=== PATIENT | female | born 1945 | race Caucasian/White ===

== ENCOUNTER 2023-07-27 19:56 | Inpatient (IN) | payer MEDICARE, OTHER, SELFPAY ==
[2023-07-27] VITALS (10 sets, daily range): BP systolic 123–161; BP diastolic 79–99; BMI 29.5
--- NOTE | 2023-07-27 16:11 | ED.MUSCINJ ---
HPI-Injury
General
Chief Complaint: Musculo-Skeletal Complaint
Source: patient
Exam Limitations: none
Time Seen by Provider: 07/27/23 15:57
Nursing documentation reviewed up to this point in time: agreed with
Travel History
Have you had any contact with someone who has COVID-19?: No
Do you have any symptoms of coronavirus? Fever > 100 degrees, chills, cough, shortness of breath, sore throat, loss of taste or smell, muscle aches, or headache?: No
History of Present Illness-Injury
Is this injury a work related problem?: No
Is pt an associate of [facility]?: No
Initial Injury comments:
Patient states she tripped over sidewalk and fell. Hit mouth on pavement. No LOC. States she was helped up by bystanders and was able to ambualate. Knee began to swell and now she can not put weight on leg. Brought to ED via EMS.
Past History
Past History
ED Past Medical History: Hypercholesterolemia and Hypothyroidism
Social History
Living: with family
Review of Systems
Review of Systems
Allergies reviewed?: Yes
All Other Systems: ROS reviewed and negative except as documented in HPI and ROS
Constitutional: Reports no symptoms
Musculoskeletal: Reports joint pain (pain and swelling to right ant. knee.)
Skin: Reports no symptoms
Neurological: Reports no symptoms
Psychiatric: Reports no symptoms
Musculoskeletal Injury Exam
Musculoskeletal Injury Exam
Right Knee:
Pain with Movement?: Moderate
Tender to palpation?: Moderate
Soft tissue swelling?: Moderate
External deformity and angulation?: None
Joint effusion?: Moderate
Contusion?: Moderate
Hematoma-local bleeding into tissue?: Moderate
Crepitus with movement?: No
Joint instability?: No
Malalignment/deformity?: No
Range of motion: Limited
Distal skin color and temperature: normal-warm & good color
Capillary Refill: normal
Normal distal neurovascular exam?: Yes
Peripheral Pulses: posterior tibial (right): 3+ and dorsalis pedis (right): 3+
Phy Exam
General Physical Exam
General Presentation: well appearing and moderate distress
General age: appears stated age
General Skin: warm and dry
General Habitus: normal
General Mental: alert
Musculoskeletal Exam
Musculoskeletal Exam: neuro vasc intact
Skin Exam
Skin Exam: normal color, warm/dry and no rash
Psychiatric Exam
Psychiatric Exam: normal mood/affect
Injury Course
Orders/Labs/Results
Orders:
Orders
07/27/23 Breakfast
Regular
07/27/23 16:11
CR Knee- Right 4 Or More View* Urgent
Comment:
Reason For Exam: fall, pain
07/27/23 17:45
Knee Immobilizer Right-Treatme ONCE
Oxycodone/Acetaminophen [Percocet 5/325] 1 tablet PO NOW STA
07/27/23 18:32
Complete Blood Count/With Diff Urgent
Comprehensive Metabolic Panel Urgent
07/27/23 18:33
ORTHOPEDIC CONSULT Urgent
Consulting Provider: Ramsey Toscano
Was physician already notified: Yes
07/27/23 19:35
Admit/Transfer Patient As Directed
Co-Sign Provider:
Level of Care: Inpatient admission
Assign to:: Medical/Surgical
Physician / Group: margie aguilar
Diagnosis: patella fracture
Reason for Hospitalization: patella fracture
Expected length of stay greater than two midnights?: Yes
ELOS- Estimated Length of Stay in days: 3
I certify the patient meets the requirements for IP care: Yes
07/27/23 19:36
Code Status As Directed
Resuscitation Status: Full Code
*Radiology
Radiology exam reviewed: radiology read reviewed
*Pulse Oximetry
Patient hypoxic: no
*Critical Care Note
Total Time (30-74mins, 75-104mins- exclusive of procedures): Not Applicable
ED Attending Note
-
Portions of this chart may have been created with voice recognition software.� Occasional wrong word or��sound alike� substitutions may have occurred due to the inherent limitations of voice recognition software.
Discharge Plan
Departure
Patient Disposition: Admit
Date of Disposition: 07/27/23
Time of Disposition: 18:25
Presentation/result/management discussed w/ accepting MD/DO: Hospitalist
Patient with high blood pressure during this ER visit?: No
Condition: Fair
Covid-19: Not Applicable
Discharge Problem:
Fracture, patella, Ambulatory dysfunction
Interventions
Interventions:
*Risk Screen - Suicide Last Done: 07/27/23 15:58
*General Assessment Last Done: 07/27/23 15:58
*Neglect/Abuse Screening Last Done: 07/27/23 15:58
ED- Fall Risk Assessment Last Done: 07/27/23 16:09
*ED COVID-19 Vaccine History Last Done: 07/27/23 15:58
ED-Musculoskeletal Assessment Last Done: 07/27/23 15:58
[2023-07-27] MEDS: PERCOCET 5/325 1 TABLET PO (17:52)
--- NOTE | 2023-07-27 19:19 | HPS.HSE ---
Family Physician
-
Family Physician: Cahno Arredondo
Chief Complaint
-
fall/right knee fracture
History of Present Illness
77-year-old with past medical history for hyperlipidemia, hypothyroidism presented to us after a fall. She tripped over a raised pavement and she fell on her knees and on her hands. She was able to get up with assistance and hoped over to a
stone. but in few hours, she noted swollen knees, worsening pain and was not able to walk. Patient denies any headache, dizziness, syncopal episode. Patient denied fever, chills, chest pain, short of breath. Denies any abdominal pain, nausea,
vomiting, diarrhea. Patient denies dysuria hematuria.
Knee x-ray with patellar fracture. immobilizer in place. admitting for further management.
Medical History
Past Medical History
Past Medical History: Reports Other
Additional Past Medical History:
Colonic polyps
obstructive sleep apnea
Hyperlipidemia
hypothyroidism
Generalized anxiety disorder
Osteopenia
Past Surgical History: Reports Other
Additional Past Surgical History:
Tonsillectomy
Right cataract removal
l right foot torn anterior tendon repair
Social History
Tobacco: Former Smoker
Alcohol: None
Drug: None
Personal:
Living: With Family
Family History
Family History: Not pertinent
Allergies / Home Medications
Allergies reflects when Allergies were last updated in [employer].
Home Medications with original date entered in [employer]
Allergy/Medication List:
Allergies
Allergy/AdvReac Type Severity Reaction Status Date / Time
certain fibers Allergy Unknown Uncoded 02/17/10 15:13
lactose intolerence Allergy Unknown Uncoded 02/17/10 15:13
Home Medications
citalopram 10 mg tablet 10 mg PO DAILY 07/27/23
coenzyme Q10 100 mg capsule (Co Q-10) 100 mg PO DAILY 07/27/23
levothyroxine 125 mcg tablet (Synthroid) 125 mcg PO MOTUWETHFRSA 07/27/23
rosuvastatin 5 mg tablet 2.5 mg PO HS 07/27/23
Review of Systems
-
Constitutional: Reports No Symptoms
EENT: Reports No Symptoms
Respiratory: Reports No Symptoms
Cardiac: Reports No Symptoms
Abdomen/GI: Reports No Symptoms
: Reports No Symptoms
Musculoskeletal: Reports Other (Right knee pain)
Skin: Reports No Symptoms
Neurological: Reports No Symptoms
Endocrine: Reports No Symptoms
Hematologic/Lymphatic: Reports No Symptoms
Psych: Reports No Symptoms
Physical Exam
Vital Signs
Vital Signs
Temp Pulse Resp BP Pulse Ox
98.2 F 86 12 134/89 96
07/27/23 15:58 07/27/23 15:58 07/27/23 15:58 07/27/23 16:01 07/27/23 16:45
Physical Exam
General: Well Developed, Well Nourished and No Apparent Distress
HEENT: NormoCephalic, Moist mucous membranes and Atraumatic
Respiratory: Clear
Cardiac: S1/S2 and Regular Rhythm; No Murmur or Rub
GI: Soft, Non Tender, Non Distended and Normal Bowel Sounds; No Organomegaly
Rectal: Deferred by Provider
Musculoskeletal: No Clubbing, No Cyanosis and Other (Right knee swelling)
Skin: No Rash
Neuro: AO x 3 and Nonfocal/grossly intact
Psych: Calm
Data Reviewed
-
Diagnostic Radiology: Report Reviewed by me
Lab Data: Labs Reviewed by me
Impression/Plan
-
# Patella fracture/ambulatory dysfunction
-Knee immobilizer in place
-Orthopedics consulted
-PT/OT consulted
-Knee x-ray with impression of Slightly distracted transverse fracture through the inferior pole of the patella. Large suprapatellar joint effusion with lipohemarthrosis. Mild prepatellar soft tissue edema.No dislocation. Mild tricompartmental
osteoarthritis.
-Will keep patient n.p.o. after midnight
# Anxiety
-Citalopram continued
# Hypothyroidism
-Levothyroxine continued
# Hyperlipidemia
-Statin continued
# DVT prophylaxis
-SCD
# CODE STATUS
-Full code
--- NOTE | 2023-07-27 19:48 | W.PN.UPDATE ---
Update Note
Progress Note Update
HPI: 77-year-old with past medical history of hyperlipidemia, hypothyroidism; presented with a fall. She tripped over a raised pavement and she fell on her knees and on her hands. She was able to get up with assistance. She noted swollen knees,
worsening pain and was not able to walk.
Patient denies to headache, dizziness, syncopal episode. Patient denies to fever, chills, chest pain, shortness of breath, abdominal pain, nausea, vomiting, diarrhea, dysuria etc.
Knee x-ray noted patellar fracture.
Immobilizer placed in ED. Admit for further management.
A/P
# Patella fracture from mechanical fall with ambulatory dysfunction
Knee x-ray with slightly distracted transverse fracture through the inferior pole of the patella. Large suprapatellar joint effusion with lipohemarthrosis. Mild prepatellar soft tissue edema.No dislocation. Mild tricompartmental osteoarthritis.
Cont Knee immobilizer
Orthopedics consulted
PT/OT eval
# Anxiety
Citalopram continued
# Hypothyroidism
Levothyroxine continued
# Hyperlipidemia
Statin continued
DVT prophylaxis-SCD
CODE STATUS-Full code
[2023-07-27] MEDS: DILAUDID 0.5 MG IV (22:45)
[2023-07-27] MEDS: TYLENOL 650 MG PO (23:52)
[2023-07-27] MEDS: CRESTOR 2.5 MG PO (23:55)
[2023-07-28] MEDS: COLACE PO (00:12)
[2023-07-28] MEDS: SENOKOT PO (00:12)
[2023-07-28 00:59] VITALS: BP 134/88
[2023-07-28] MEDS: TYLENOL 650 MG PO ×3 (05:07→12:17)
[2023-07-28] MEDS: DILAUDID 0.5 MG IV (05:10)
[2023-07-28 07:00] VITALS: BP 152/80
[2023-07-28] MEDS: SYNTHROID 125 MCG PO (07:50)
[2023-07-28] MEDS: SENOKOT 17.1999999999999993 MG PO (07:51)
[2023-07-28] MEDS: COLACE 100 MG PO (07:51)
[2023-07-28 07:52] VITALS: BP 144/97
--- NOTE | 2023-07-28 08:13 | CON.ORTHO ---
Consultation
-
Date/Time Consultation Requested: 07/27/2023; time unknown
Date/Time Consultation Performed: 07/28/2023; 0745
Requesting Provider: unknown
Performing Provider: Dr. Ramsey Toscano / Bridgette Griffith PA-C
Reason for Consultation: Right patella fracture
Consultation - Orthopedics
History
Patient seen in tandem with Dr. Toscano.
Ms. Fonseca is a 77 yo F with PMH of hyperlipidemia and hypothyroidism seen today for evaluation of her right knee. She reports she was walking around in the city yesterday morning when she tripped on a paving stone and landed on her right knee. She
experienced immediate onset of pain in the knee, but was able to drive herself home. She reports her pain and swelling became progressively worse with time to the point where she was not able to bear weight on it. This prompted her to present to
[facility] ED where x-rays revealed a nondisplaced transverse fracture of her right patella. She does report aching pain in the knee, but states her symptoms have improved overnight. She had significant difficulty ambulating in her knee
immobilizer yesterday which prompted her to be kept overnight for observation. She denies treatment for this knee in the past. She denies pain elsewhere.
She lives independently with her , and has children in the area. She does report she has had difficulty with her balance in the last few months, and has sustained several falls recently, one of which resulted in a right proximal humerus
fracture which was treated under the direction of Dr. Smith. She ambulates without assistance at baseline.
Allergies / Home Medications
Allergy/AdvReac Type Severity Reaction Status Date / Time
lactose Allergy Unknown Verified 07/27/23 22:34
certain fibers Allergy Unknown Uncoded 02/17/10 15:13
�Medication �Instructions �Recorded
citalopram 10 mg tablet 10 mg PO DAILY 07/27/23
coenzyme Q10 100 mg capsule (Co 100 mg PO DAILY 07/27/23
Q-10)
levothyroxine 125 mcg tablet 125 mcg PO MOTUWETHFRSA 07/27/23
(Synthroid)
rosuvastatin 5 mg tablet 2.5 mg PO HS 07/27/23
Vital Signs / Lab Results
Temp Pulse Resp BP Pulse Ox
98.6 F 111 20 144/97 92
07/28/23 07:52 07/28/23 07:52 07/28/23 07:52 07/28/23 07:52 07/28/23 07:52
07/27/23 18:32
07/27/23 18:32
XR Right Knee 07/27/2023 reveals nondisplaced transverse fracture of the right patella.
Directed exam of the right knee reveals knee immobilizer in place. Positive effusion. No significant erythema, ecchymosis or lesions. Tenderness to palpation over the distal pole of the patella. No tenderness elsewhere in the knee. Range of
motion deferred secondary to known patella fracture. Calf soft and nontender. Patient able to wiggle toes, plantar and dorsiflex ankle. Neurovascular intact distally.
Assessment / Plan
Nondisplaced right patella fracture
-- Unfortunately, Elizabeth sustained a patella fracture in her fall. Thankfully, this is nondisplaced and can be managed nonoperatively for the time being. We will continue to follow closely with serial radiographs on an outpatient basis. She
should continue with immobilization in her knee immobilizer at all times. She may be weightbearing as tolerated in her knee immobilizer. I recommended she utilize crutches or a walker for stability when ambulating. No flexion of the knee. She is
not on any daily blood thinners, and I recommended she start a daily 325 mg aspirin for DVT prophylaxis given limited mobility. I would like to see her back in the office next week for repeat x-rays. Continue pain control per primary. Patient is
okay for discharge from an orthopedic standpoint pending PT/OT evaluation and clearance. Please reach out with any additional orthopedic questions or concerns.
--- NOTE | 2023-07-28 08:33 | W.PN.HOSP.TC ---
Today's Communication/Plan
-
Presumed discharge later today after seen by PT/OT
She wants to minimize narcotic usage but will give a prescription for oxycodone as needed extra-strength Tylenol otherwise
Continue usage of immobilizer to the right leg no flexion at knee
Follow-up with Dr. Toscano orthopedics in 1 week
Aspirin DVT prophylaxis 325
Assessment / Plan
Assessment / Plan
77-year-old with past medical history of hyperlipidemia, hypothyroidism; presented with a fall. She tripped over a raised pavement and she fell on her knees and on her hands. She was able to get up with assistance. She noted swollen knees,
worsening pain and was not able to walk.
Patient denies to headache, dizziness, syncopal episode. Patient denies to fever, chills, chest pain, shortness of breath, abdominal pain, nausea, vomiting, diarrhea, dysuria etc.
Knee x-ray noted patellar fracture.
Immobilizer placed in ED. Admit for further management.
A/P
# Patella fracture from mechanical fall with ambulatory dysfunction
Knee x-ray with slightly distracted transverse fracture through the inferior pole of the patella. Large suprapatellar joint effusion with lipohemarthrosis. Mild prepatellar soft tissue edema.No dislocation. Mild tricompartmental osteoarthritis.
Cont Knee immobilizer
Orthopedics consulted/no intervention recommended and will see in 1 week as outpatient
No knee flexion continue usage of immobilizer/full dose aspirin till seen as DVT prophylaxis
PT/OT eval
# Anxiety
Citalopram continued
# Hypothyroidism
Levothyroxine continued
# Hyperlipidemia
Statin continued
DVT prophylaxis-SCD
CODE STATUS-Full code
Anticipated Discharge: Today
Subjective/Interval History
-
Date of Service: July 28, 2023
Not much pain referred while she is lying in bed with immobilizer to her right knee but could not weight-bear at all prior to coming in was seen by orthopedics and no surgical intervention recommended and will follow-up in 1 week.
Objective Data
-
Labs:
Laboratory Results
07/27/23
18:32
WBC Cancelled
Hgb Cancelled
Hct Cancelled
Plt Count Cancelled
Sodium Cancelled
Potassium Cancelled
Chloride Cancelled
Carbon Dioxide Cancelled
BUN Cancelled
Creatinine Cancelled
Glucose Cancelled
Calcium Cancelled
Total Bilirubin Cancelled
AST Cancelled
ALT Cancelled
Alkaline Phosphatase Cancelled
Vital Signs:
Vital Signs
Temp Pulse Resp BP Pulse Ox
98.6 F 111 20 144/97 92
07/28/23 07:52 07/28/23 07:52 07/28/23 07:52 07/28/23 07:52 07/28/23 07:52
I&O
07/27/23 07/28/23 07/29/23
06:59 06:59 06:59
Intake Total 240 / 240
Output Total 500 / 500
Balance -260 / -260
Review of Systems
-
History Source: Patient
Musculoskeletal: Reports Muscle Pain and Arthralgias (Right knee)
Physical Exam
-
General: Well Developed
HEENT: Normocephalic
Respiratory: Clear to Auscultation
Cardiac: Regular Rhythm
GI: Soft and Nontender
Musculoskeletal: Edema, Right Lower Extrem (Right knee immobilizer in place ankle flexion extension intact)
Neuro: Awake, Alert, Oriented, AO x 3 and No Motor Deficits
Psych: Calm
Data Reviewed
-
Total Time Spent with Patient (in minutes): 45
Diagnostic Radiology: Report Reviewed by me
Labs: Labs Reviewed by me
[2023-07-28] MEDS: CELEXA 10 MG PO (09:46)
[2023-07-28] MEDS: ASPIRIN ENTERIC COATED 325 MG PO (09:46)
--- NOTE | 2023-07-28 10:49 | CM ---
Addendum entered by Margaret Davison RN 07/28/23 13:52:
Patient has been cleared for home. Patient was issued a walker, and commode by PT/OT. Patient's daughter is going to order a wheelchair through her pharmacy. Patient will order a ramp from [employer]. Patient is agreeable to [facility]N. [facility] operations liaison
updated via [employer] with new referral.
PLAN: Home with [facility].
Original Note:
CM reviewed medical records. CM met with patient in room. Patient confirmed demographics. Patient lives independently with . Patient denied history of VN, and SNF. No DME in the home at this time. Patient's PCP is Dr. Arredondo. Patient uses
[facility] for medication services. Patient has a first floor set up. Patient would prefer home discharge.
CM will await PT recommendations.
PLAN: Home vs. SNF.
[2023-07-28 13:00] VITALS: BP 141/89; O2SAT 95
[2023-07-28 13:43] VITALS: BP 141/89; PULSE 105; O2SAT 95
[2023-07-28 14:00] VITALS: BP 136/89
--- NOTE | 2023-07-28 14:10 | VNURNOTE ---
Home Health Liaison spoke with patient at 1400 to discuss [facility] therapy, visits, schedule and homebound status. Patient is agreeable and understands that visits at home will be 2x per week to assess and teach strengthening, balance and safety.
Patient is aware that [facility] will contact her for start of care in 1-2 days after discharge from .
[facility] referral completed in [facility].
--- NOTE | 2023-07-28 14:40 | W.DCSUMMARY ---
Discharge Summary
Discharge Data
Date of Admission: 07/27/23
Date of Discharge: 07/28/23
-
Pending Results: No
Hospital Course
77-year-old female with only past medical history that includes hypothyroidism hyperlipidemia presents to the ED as a [facility] after tripping over a sidewalk and hitting her right knee and now found to have a right patellar fracture that
was nondisplaced. Attempts made in the ED to have her discharged with a knee immobilizer and physical therapy but was unable to bear any weight on that lower extremity and she was observed overnight she denied pain elsewhere she lives independently
she was seen and evaluated after overnight admission by the orthopedic service the recommendation was no intervention other than assessment by physical therapy with durable medical equipment supplied that includes recommendations for usage of
crutches and/or walker for stability when ambulating no flexion of knee whatsoever with continued usage of knee immobilizer. DVT prophylaxis recommended in the form of full dose aspirin 325 mg a day until she can be seen by the orthopedic service
in approximately 1 week for repeat x-rays/PT evaluation noted assist need for assistance at all times for safety rolling walker was issued by prescription for home use along with a wheelchair and a bedside commode. We called in a prescription for
oxycodone 5 mg as needed every 6 hours with stool bowel precautions also advised for treatment of constant the patient from narcotic intake.
Discharge Plan
-
Patient Disposition: Home (Routine Discharge)
Discharge Diagnosis/Procedures: Patellar fracture
Condition: Good
Diet: Regular
Additional Activity: Weightbearing on right leg but no flexion of knee continue usage of immobilizer
Driving Restrictions: Till cleared by orthopedic
Other Services: PT and OT
Referrals:
Chano Arredondo DO [Family Provider] -
Prescriptions:
New
aspirin 325 mg Tablet,Delayed Release (Dr/Ec)
325 mg PO DAILY Qty: 30 0RF
docusate sodium 100 mg Capsule
100 mg PO BID Qty: 30 0RF
acetaminophen 325 mg Tablet
650 mg PO Q4HWA Qty: 30 0RF
oxycodone 5 mg Tablet
5 mg PO Q4HPRN PRN (Reason: mild pain) Qty: 20 0RF
Continued
citalopram 10 mg tablet
10 mg PO DAILY
levothyroxine [Synthroid] 125 mcg tablet
125 mcg PO MOTUWETHFRSA
coenzyme Q10 [Co Q-10] 100 mg Capsule
100 mg PO DAILY
rosuvastatin 5 mg Tablet
2.5 mg PO HS
Discharge Orders:
Discharge Patient (As Directed); Ordered 07/28/23
Ordered By: Chase Vivar
Discharge Date and Time
Print Language: LAO
--- NOTE | 2023-07-28 14:47 | W.DS.TRANS ---
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
-
Discharge Instructions:
Discharge Diagnosis/Procedures Patellar fracture
Diet Regular
Additional Activity Weightbearing on right leg but no flexion of
knee continue usage of immobilizer
Driving Restrictions Till cleared by orthopedic
Other Services PT,OT
Instructions:
Stand-Alone Forms:
Changes to Home Medications: Yes
Discharge Medications:
DC Medications w/original date entered in [employer]
citalopram 10 mg tablet 10 mg PO DAILY Mental Health 07/27/23
coenzyme Q10 100 mg capsule (Co Q-10) 100 mg PO DAILY Supplement 07/27/23
levothyroxine 125 mcg tablet (Synthroid) 125 mcg PO MOTUWETHFRSA Thyroid 07/27/23
rosuvastatin 5 mg tablet 2.5 mg PO HS High Cholesterol 07/27/23
acetaminophen 325 mg tablet 650 mg (2 x 325 mg) PO Q4HWA #30 tabs 07/28/23
aspirin 325 mg tablet,delayed release 325 mg PO DAILY #30 tabs 07/28/23
docusate sodium 100 mg capsule 100 mg PO BID #30 caps 07/28/23
oxycodone 5 mg tablet 5 mg PO Q4HPRN PRN mild pain #20 tabs 07/28/23
Home Medication Changes
acetaminophen 325 mg tablet 650 mg (2 x 325 mg) PO Q4HWA #30 tabs 07/28/23
aspirin 325 mg tablet,delayed release 325 mg PO DAILY #30 tabs 07/28/23
docusate sodium 100 mg capsule 100 mg PO BID #30 caps 07/28/23
oxycodone 5 mg tablet 5 mg PO Q4HPRN PRN mild pain #20 tabs 07/28/23
Pending Results: No
Total time spent discharging patient (in min): 45
== END 2023-07-28 14:12 | disposition home health service (06) | DRG 563 ==
LOC: ED 19:56
PROVIDERS: ADMITTING PHYSICIAN Internal Medicine; ATTENDING PHYSICIAN Internal Medicine; CONSULT PHYSICIAN Specialist; EMERGENCY PHYSICIAN Emergency Medicine; FAMILY PHYSICIAN Family Medicine
DX: S82.034A Nondisplaced transverse fracture of right patella, initial encounter for closed fracture (principal); W10.1XXA Fall (on)(from) sidewalk curb, initial encounter; Y93.01 Activity, walking, marching and hiking; Y92.480 Sidewalk as the place of occurrence of the external cause; E03.9 Hypothyroidism, unspecified; E78.00 Pure hypercholesterolemia, unspecified; M17.10 Unilateral primary osteoarthritis, unspecified knee; M85.80 Other specified disorders of bone density and structure, unspecified site; F41.1 Generalized anxiety disorder; R29.6 Repeated falls; R60.9 Edema, unspecified; G47.33 Obstructive sleep apnea (adult) (pediatric); E73.9 Lactose intolerance, unspecified; Z79.890 Hormone replacement therapy; Z87.891 Personal history of nicotine dependence; Z86.010 Personal history of colon polyps
CPT/HCPCS: 73564; 97163; 97166; 97535

== ENCOUNTER → 2023-11-11 16:16 | Outpatient (REF) | payer MEDICARE, OTHER, SELFPAY | LOC: PAVMRI 16:16 | PROVIDERS: ATTENDING PHYSICIAN Physician Assistant Surgical; FAMILY PHYSICIAN Family Medicine | DX: S82.034D Nondisplaced transverse fracture of right patella, subsequent encounter for closed fracture with routine healing (principal) | CPT/HCPCS: 73721 ==

== ENCOUNTER → 2024-01-21 14:03 | Outpatient (REF) | payer MEDICARE, OTHER, SELFPAY | LOC: RAD 14:03 | PROVIDERS: ATTENDING PHYSICIAN Family Medicine | DX: M79.89 Other specified soft tissue disorders (principal); R22.41 Localized swelling, mass and lump, right lower limb | CPT/HCPCS: 93971 ==

== ENCOUNTER → 2024-03-03 14:53 | Outpatient (REF) | payer MEDICARE, OTHER, SELFPAY | LOC: HWWDC 14:53 | PROVIDERS: ATTENDING PHYSICIAN Obstetrics & Gynecology; FAMILY PHYSICIAN Family Medicine | DX: Z12.31 Encounter for screening mammogram for malignant neoplasm of breast (principal) | CPT/HCPCS: 77063; 77067 ==